=== PATIENT | female | born 1990 | race Caucasian/White ===

== ENCOUNTER 2021-10-31 11:50 | Emergency (ER) | payer OTHER ==
[~2021-10-31] VITALS: Ht 160 cm; Wt 61.2 kg
--- NOTE | 2021-10-31 12:00 | NUR ---
Pt placed in room 2b by medical coding technician Olga. Pt placed [place] in pos of comfort and initial vs obtained. Pt complaining of severe MOTA, otherwise healthy. VSS, PE WNL, NAD, AAOx4, PERRLA, no jvd, no trach dev, no dental caries or lesions. good distal pulses x4ext, strong and equal maintainer operator strength bilat, Lungs ctab. no s/sx of distress present. denies any sob, dizziness or N/v.
[2021-10-31] MEDS ORDERED: METOCLOPRAMIDE HCL 10 MG/2 ML VIAL ONE (12:10)
[2021-10-31] MEDS ORDERED: KETOROLAC TROMETHAMINE 15 MG INJ ONE (12:11)
[2021-10-31] MEDS ORDERED: ACETAMINOPHEN 325 MG TABLET ONE ×2 (12:11→13:49)
[2021-10-31] MEDS ORDERED: KETOROLAC TROMETHAMINE 15 MG INJ IVP ONE (12:15)
[2021-10-31] MEDS ORDERED: METOCLOPRAMIDE HCL 10 MG/2 ML VIAL IV ONE (12:15)
[2021-10-31] MEDS ORDERED: IV NORMAL SALINE 500 ML BAG IV ONE (12:15)
[2021-10-31] MEDS ORDERED: ACETAMINOPHEN 325 MG TABLET PO ONE ×2 (12:15→13:45)
[2021-10-31] MEDS ORDERED: ONDANSETRON 4 MG/2 ML VIAL ONE (12:40)
--- NOTE | 2021-10-31 12:40 | NUR ---
after meds administered, pt had brief episode of vomiting, pt vomited copious amts of emesis and bile. Pt states she feels much better after vomiting. EDMD ordered 4mg of zofran but pt refused and said that she is no longer nauseated. Pt is resting comfortably now, 1st bag of NS bolus running wide open.
[2021-10-31] MEDS ORDERED: ONDANSETRON 4 MG/2 ML VIAL IV ONE (12:45)
[2021-10-31] MEDS ORDERED: PROCHLORPERAZINE EDISYLATE 10 MG/2 ML VIAL IV ONE (13:45)
[2021-10-31] MEDS ORDERED: PROCHLORPERAZINE EDISYLATE 10 MG/2 ML VIAL ONE (13:49)
--- NOTE | 2021-10-31 14:50 | NUR ---
1L NS bolus completed and primary line shut off and DCed. Pt tolerated well. States that she feel much better pain went from02/13-09/13
[2021-10-31] MEDS ORDERED: ONDA4TAB11 PO (14:56)
--- NOTE | 2021-10-31 15:18 | NUR ---
Pt given dc instructions and med info. Pt confirmed understanding of aftercare. All questions answered. IV removed from Rt ac without difficulty, site dressed with 4x4s and tape. Pt very thankful for care received. Signed out and ambulated out of dept with steady gait. VSS, NAD, no s/sxof distress present.
[2021-10-31 16:04] VITALS: BP 97/65
== END 2021-10-31 15:00 | disposition home or self-care (01) ==
LOC: ER 11:50
DX: G43.909 Migraine, unspecified, not intractable, without status migrainosus (principal)
CPT/HCPCS: 96361; 96374; 96375; 99284; J0780; J1885; J2765; J7040; A4663; J2405

== ENCOUNTER 2024-05-02 09:49 | Emergency (ER) | payer OTHER ==
[~2024-05-02] VITALS: Ht 160 cm; Wt 76.2 kg
[~2024-05-02 09:49] MED LIST: ONDA4TAB11 PO
[2024-05-02] MEDS ORDERED: HYDR-3980 PO (12:42)
[2024-05-02] MEDS ORDERED: HYDROCODONE/APAP 10-325 MG TABLET ONE (12:47)
[2024-05-02] MEDS: HYDROCODONE/APAP 10-325 MG TABLET PO ONE (12:50)
[2024-05-02 14:17] VITALS: BP 138/84; O2SAT 98
== END 2024-05-02 14:18 | disposition home or self-care (01) ==
LOC: ER 09:49
DX: S82.841A Displaced bimalleolar fracture of right lower leg, initial encounter for closed fracture (principal); Z79.899 Other long term (current) drug therapy; W01.0XXA Fall on same level from slipping, tripping and stumbling without subsequent striking against object, initial encounter; Y93.89 Activity, other specified; Y92.89 Other specified places as the place of occurrence of the external cause; Y99.0 Civilian activity done for income or pay
CPT/HCPCS: 73590; A4606; A4663